=== PATIENT | female | born 1985 | race Caucasian/White ===

== ENCOUNTER 2016-12-16 13:35 | Inpatient (IN) | payer OTHER ==
[2016-12-16] MEDS ORDERED: OLIVE OIL 118 ML BTL MISC PRN (13:53)
[2016-12-16] MEDS ORDERED: OXYTOCIN/RINGERS LACTATE 1,000 ML IV PRN (13:53)
[2016-12-16] MEDS ORDERED: LR 1,000 ML IV PRN (13:53)
[2016-12-16] MEDS ORDERED: TERBUTALINE SULFATE 1 MG/ML VIAL IV PRN (13:53)
[2016-12-16] MEDS ORDERED: EPSOM SALT 454 GM TP PRN (13:53)
[2016-12-16] MEDS ORDERED: OXYTOCIN 20 UNIT in LR 1,000 ML IV PRN (14:02)
[2016-12-16 14:12] LABS: % IMMATURE GRANULYOCYTES 0.5 % (0.0-1.1); ABSOLUTE IMMATURE GRANULOCYTES 0.05 10^3/uL (0.00-0.10); ADD DIFF? NO; ADD MORPH? NO; ADD SCAN? NO; ATYPICAL LYMPHOCYTE FLAG 10 (0-99); FRAGMENT RBC FLAG 0 (0-99); HEMATOCRIT 36.7 % (38.0-47.0); HEMOGLOBIN 12.8 g/dL (12.6-16.3); LEFT SHIFT FLG 0 (0-99); LIPEMIA HEMOLYSIS FLAG 90 (0-99); MEAN CELL HEMOGLOBIN 29.7 pg (27.9-34.1); MEAN CELL HEMOGLOBIN CONCENTR. 34.9 g/dL (32.4-36.7); MEAN CELL VOLUME 85.2 fL (81.5-99.8); MEAN PLATELET VOLUME 11.1 fL (8.7-11.7); PLATELET CLUMPS FLAG 0 (0-99); PLATELET COUNT 162 10^3/uL (150-400); RED BLOOD CELL COUNT 4.31 10^6/uL (4.18-5.33); RED CELL DISTRIBUTION WIDTH 13.9 % (11.5-15.2)
--- NOTE | 2016-12-16 14:17 | GHP ---
[f rep st] PREOP HISTORY AND PHYSICAL DATE OF ADMISSION: 12/16/2016 ADMITTING DIAGNOSIS: Intrauterine at 40 and 1/7th weeks' gestation, in spontaneous active labor. HISTORY OF PRESENT ILLNESS: The patient is a 31-year-old, 2, para 1-0-0-1, with a last menst rual period of 03/28/2016, and an EDC of 12/15/2016, confirmed by a 9-week ultrasound. She has had good care at [facility] since registration at 9 weeks gestation. She began having contractions in the evening of the . They increased in frequency and intensity on t he morning of the , and she presented to labor and delivery with regular strong contractions ever y 2-4 minutes. On examination, heart tones are in the 120s and reactive, moderate variability, category 1. She is osmany every 2-3 minutes, and her cervix is 4 cm, 80%, minus 2, and she is intact, and she will be admitted for labor management. She has had good care at [facility]. Her risk factors include a history of depression and anxiety, as well as depression. She has used Zoloft for mood in this pr egnancy, and is stable and doing well. No other significant risk factors. PAST OBSTETRICAL HISTORY: In October 2013, the patient had a spontaneous vaginal delivery of a via ble female infant, after induction of labor at 41 weeks, without complications. PAST GYNECOLOGICAL HISTORY: She has a normal menstrual triad. She used history of oral contraceptiv e use, followed by ParaGard IUD. She has no history of any abnormal Paps or STDs. PAST MEDICAL HISTORY: She has no significant past medical history, other than anxiety and depression , and she is currently treated and doing well. PAST SURGICAL HISTORY: No significant past surgical history. ALLERGIES: No known drug allergies. MEDICATIONS: Include vitamins and DHA. FAMILY HISTORY: Significant for father with depression, who committed suicide at the age of 50. Pat ernal grandmother with breast cancer in her 60s. Paternal grandfather with a history of cardiovascul ar disease. SOCIAL HISTORY: She is , to a named Neri, in a stable, monogamous relationship. S he lives with her and her daughter. She denies tobacco, alcohol, or drug use in this pregnan cy. REVIEW OF SYSTEMS: Negative, except for labor symptoms as above. She lost her mucus plug this morni ng, and has had some vaginal bleeding. No other complications. LABORATORY DATA: Labs in this , she is O positive, antibody negative. RPR nonreactive. He patitis negative. HIV negative. Rubella immune and GBS was negative. 1-hour GTT was normal, as wel l as her genetic screening tests in this . ASSESSMENT AND PLAN: A 31-year-old, 2, para 1-0-0-1, at 40 and 1/7th weeks' gestation, in sp ontaneous active labor. heart tones are reactive, category 1, and reassuring. She desires an epidural for pain control. Patient will get admitted, have IV access, and an epidural as desired, an d active labor management. /[id number]/MODL
[2016-12-16] MEDS ORDERED: LIDOCAINE 1% 300 MG/30 ML SDV ONE (14:49)
[2016-12-16] MEDS ORDERED: AMMONIA AROMATIC 1 EACH AMP IH ONE (14:49)
[2016-12-16] MEDS ORDERED: OLIVE OIL 118 ML BTL ONE (14:49)
[2016-12-16] MEDS ORDERED: MISOPROSTOL 200 MCG TAB ONE (14:50)
[2016-12-16] MEDS ORDERED: fentaNYL 100 MCG/2 ML INJ ONE (14:57)
[2016-12-16] MEDS ORDERED: fentaNYL 2MCG/ML/BUP 0.1% RTU 100 ML BAG EP ONE (14:58)
[2016-12-16] MEDS ORDERED: NALOXONE HCL 0.4 MG/ML INJ IVP PRN (15:26)
[2016-12-16] MEDS ORDERED: ONDANSETRON 4 MG/2 ML VIAL IVP PRN (15:26)
[2016-12-16] MEDS ORDERED: PHENYLEPHRINE HCL 100 MCG/ML SYR IVP PRN (15:26)
--- NOTE | 2016-12-16 15:27 | POSTANESTH ---
Post Anesthetic Evaluation Cardiovascular Status: Normal, Stable Respiratory Status: Normal, Stable Level of Consciousness/Mental Status: Can Participate in Eval Pain Control: Adequate, Prn Tx Ordered Nausea/Vomiting Control: Adequate, Prn Tx Ordered Complications Possibly Related to Anesthesia: None Noted
[2016-12-16] MEDS ORDERED: fentaNYL 2MCG/ML/BUP 0.1% RTU 100 ML EP SCH (15:30)
[2016-12-16] MEDS ORDERED: LR 500 ML IV SCH (15:30)
--- NOTE | 2016-12-16 18:02 | OBPROG ---
Labor Progress Note Assessment/Plan: Assessment: Plan: Subjective/Intrapartum Course: 12/16/16 18:00 Pt is now comfortable with her epidural. Objective: 12/16/16 14:00 Patient ABO/Rh O POSITIVE 12/16/16 14:00 - SVE Dilation (cm): 5 Effacement (%): 80 Station: -1 Membranes: AROM Amniotic Fluid Color: Meconium Stained (thin) - Contraction Pattern Assessment Current Contraction Pattern: Regular (Q 3) - FHR Assessment Morgan FHR (bpm): 130 FHR Pattern Variability: Moderate FHR Category: 1 - Procedures Non-surgical Procedures: Amniotomy - AP Antepartum Course: 12/16/16 18:00 Hx of depression, anxiety and PP depression on Zoloft Oxytocin Orders Assessment - Pre-Induction/Augmentation Assessment Gestational Age: 40 week(s) and 1 day(s) ICD10 Worksheet Patient Problems: Problems Problem Status Onset Post-dates Acute Spontaneous vaginal delivery Acute
[2016-12-16] MEDS ORDERED: ACETAMINOPHEN 325 MG TAB PO PRN (19:05)
[2016-12-16] MEDS ORDERED: HYDROCORTISONE 0.5% CREAM TP PRN (19:05)
[2016-12-16] MEDS ORDERED: HYDROCODONE/APAP 5/325 TAB PO PRN (19:05)
[2016-12-16] MEDS ORDERED: SIMETHICONE 80 MG TAB CHEW PO PRN (19:05)
--- NOTE | 2016-12-16 19:09 | OBDEL ---
Info Type: Vaginal Presentation at Delivery: Vertex L&D Analgesia/Anesthesia Type: Epidural GBS+: No Intrapartum Medications: Generic Name Dose Route Start Last Admin Trade Name Freq PRN Reason Stop Dose Admin Lactated Ringer's 1,000 mls @ 0 mls/hr 12/16/16 13:53 12/16/16 14:45 Lr IV 06/14/17 13:52 1,000 mls PRN PRN Administration SEE PROTOCOL CONDITIONS Protocol Per Protocol - Hospital Course Intrapartum: 12/16/16 18:00 Pt is now comfortable with her epidural. Indications for Delivery: Spontaneous Labor Vaginal Delivery - Delivery Provider Delivery Physician/CNM: Becki Raines - Labor and Delivery Onset of Contractions Date: 12/16/16 Onset of Contractions Time: 12:00 Onset of Contractions Type: Spontaneous Rupture of Membranes Date: 12/16/16 Rupture of Membranes Time: 16:19 Rupture of Membranes Type: Artificial Amniotic Fluid Color: Meconium Stained (thin) Dilation Complete Date: 12/16/16 Dilation Complete Time: 18:22 Placenta Delivery Date: 12/16/16 Placenta Delivery Time: 18:36 Total Hours of Labor: 6 Non-surgical Procedures: Amniotomy Laceration: 1st Degree Repair: 2-0, Vicryl Vaginal Sponge Count Correct: Yes Vaginal Needle Count Correct: Yes Vaginal Sweep Performed: No EBL: 300 Delivery Events: None - Medications Labor Augmentation/Induction Methods Used: None Data Morgan Delivery Date: 12/16/16 Delivery Time: 18:32 JAKY: 12/15/16 Gestational Age: 40 week(s) and 1 day(s) Sex of : Female Score (1 Min): 8 Score (5 Min): 9 ICD10 Worksheet Patient Problems: Problems Problem Status Onset Post-dates Acute Spontaneous vaginal delivery Acute
[2016-12-16] MEDS: IBUPROFEN 600 MG TAB PO PRN (22:42)
[2016-12-17] MEDS: IBUPROFEN 600 MG TAB PO PRN ×3 (05:11→22:37)
--- NOTE | 2016-12-17 09:48 | OBPP ---
Progress Note Assessment/Plan: Assessment: 30 yo PPD#1 s/p doing well. Plan: Routine PP care. DC home tomorrow. 12/17/16 09:45 Subjective/ Course: 12/17/16 09:46 Silvana is doing well. She is , ambulating, and voicing on her own. She reports minimal pain and moderate lochia. She has no specific complaints. Objective: 12/16/16 14:00 Patient ABO/Rh O POSITIVE 12/16/16 14:00 Temp Pulse Resp BP Pulse Ox 36.6 C 65 16 95/53 L 94 12/17/16 00:50 12/17/16 00:50 12/17/16 00:50 12/17/16 00:50 12/17/16 00:50 Physical Exam - Physical Exam Respiratory: lungs clear Cardiac/Chest: regular rate, rhythm Abdomen: normal bowel sounds, non-tender, soft, other (Fundus firm, below umbilicus) Extremities: non-tender Skin: normal color, warm/dry Neuro/Psych: no motor/sensory deficits, alert, normal mood/affect, oriented x 3
[2016-12-17 09:50] VITALS: O2SAT 95
[2016-12-17] MEDS: DOCUSATE SODIUM 100 MG CAP PO PRN (20:25)
[2016-12-18] MEDS: IBUPROFEN 600 MG TAB PO PRN ×2 (04:33→11:03)
--- NOTE | 2016-12-18 08:03 | OBPP ---
Progress Note Assessment/Plan: Assessment:nipples intact well pain well managed ff@u scant rubra lochia perineum approximated voiding without difficulty Plan:discharge to home with instructions. Discussed depression, , rest, pain management, pelvic rest, fu 4 weeks and 6 weeks, ss infection, bleeding pattern, continue PNV. 12/18/16 08:00 Subjective/ Course: 12/17/16 09:46 Silvana is doing well. She is , ambulating, and voicing on her own. She reports minimal pain and moderate lochia. She has no specific complaints. 12/18/16 07:59 Doing well denies difficulties. Pain well managed. well. Ready to go home. Objective: 12/16/16 14:00 Patient ABO/Rh O POSITIVE 12/16/16 14:00 Temp Pulse Resp BP Pulse Ox 36.7 C 67 24 H 108/70 95 12/17/16 20:48 12/17/16 20:48 12/17/16 20:48 12/17/16 20:48 12/17/16 08:00 Uterine Position/Fundal Height: At Umbilicus Uterine Tone: Firm Physical Exam - Physical Exam General Appearance: WD/WN, alert, no apparent distress Abdomen: other (ff@u scant rubra lochia/ perineum approximated) Extremities: Moo's sign (negative bilaterally) DTR- Lower Extremities: Knee (R): 1+, Knee (L): 1+ (no clonus) Skin: normal color, warm/dry Neuro/Psych: no motor/sensory deficits, alert, normal mood/affect, oriented x 3
--- NOTE | 2016-12-18 08:04 | OBGCSDC ---
General Delivery Information - General Info : 2 Para: 2 Abortions: 0 Type: Vaginal L&D Analgesia/Anesthesia Type: Epidural Admission Date: 12/16/16 Labs: Patient ABO/Rh O POSITIVE 12/16/16 14:00 Hct 36.7 % (38.0-47.0) L 12/16/16 14:00 - Hospital Course Antepartum: 12/16/16 18:00 Hx of depression, anxiety and PP depression on Zoloft Intrapartum: 12/16/16 18:00 Pt is now comfortable with her epidural. : Doing well denies difficulties. PAin well managed. well. Voiding without difficulties. Perineum approximated 12/17/16 09:46 Silvana is doing well. She is , ambulating, and voicing on her own. She reports minimal pain and moderate lochia. She has no specific complaints. 12/18/16 07:59 Doing well denies difficulties. Pain well managed. well. Ready to go home. 12/18/16 08:03 Vaginal - Delivery Provider Delivery Physician/CNM: Becki Raines - Diagnosis Labor: Spontaneous Rupture of Membranes Type: Artificial Amniotic Fluid Color: Meconium Stained (thin) Laceration: 1st Degree Repair: 2-0, Vicryl Delivery Events: None - Procedures Non-surgical Procedures: Amniotomy - Delivery Non-surgical Procedures: Amniotomy EBL: 300 [place] Data Morgan Delivery Date: 12/16/16 Delivery Time: 18:32 JAKY: 12/15/16 Gestational Age: 40 week(s) and 3 day(s) Sex of : Female Weight (gm): 3420 g Score (1 Min): 8 Score (5 Min): 9
[2016-12-18 08:13] VITALS: BP 110/71; PULSE 86; RESP 18; TEMP 98.9
[2016-12-18] MEDS: DOCUSATE SODIUM 100 MG CAP PO PRN (08:30)
[2016-12-18] MEDS ORDERED: SERTRALINE HCL 50 MG TAB PO SCH (10:15)
== END 2016-12-18 12:30 | disposition home or self-care (01) | DRG 775 ==
LOC: FLD 13:35 → FOB 22:10
PROVIDERS: ADMIT Obstetrics & Gynecology; ATTEND Obstetrics & Gynecology
PROC: 10E0XZZ Delivery of Products of Conception, External Approach (ICD-10-PCS; principal; 2016-12-16)
PROC: 0HQ9XZZ Repair Perineum Skin, External Approach (ICD-10-PCS; principal; 2016-12-16)
PROC: 10907ZC Drainage of Amniotic Fluid, Therapeutic from Products of Conception, Via Natural or Artificial Opening (ICD-10-PCS; principal; 2016-12-16)
DX: O77.0 Labor and delivery complicated by meconium in amniotic fluid (principal); O70.0 First degree perineal laceration during delivery; O99.343 Other mental disorders complicating pregnancy, third trimester; F32.9 Major depressive disorder, single episode, unspecified; F41.9 Anxiety disorder, unspecified; Z37.0 Single live birth; Z3A.40 40 weeks gestation of pregnancy
CPT/HCPCS: J3010

== ENCOUNTER → 2016-12-21 | Outpatient (CLI) | payer OTHER | LOC: FLAB 12:45 | PROVIDERS: ATTEND Obstetrics & Gynecology | DX: O92.13 Cracked nipple associated with lactation (principal); O92.79 Other disorders of lactation | CPT/HCPCS: G0463 ==